=== PATIENT | male | born 1990 | race Native Hawaiian/Other Pacific Islander ===

== ENCOUNTER 2019-01-11 22:01 | Inpatient (IN) ==
[2019-01-11] MEDS ORDERED: MORPHINE IV ONE (23:24)
[2019-01-11] MEDS ORDERED: ZOFRAN IV ONE (23:24)
[2019-01-11] MEDS ORDERED: NS 1,000 ML IV ONE (23:24)
[2019-01-11 23:40] LABS: HEMATOCRIT 47.4 % (42.0-52.0); HEMOGLOBIN 16.3 g/dL (14.0-18.0); IMM GRAN# 0.01 X1000 (0.0-0.04); IMM GRAN% 0.3 % (0.0-0.5); LYMPH# 1.08 X1000 (1.2-3.4); LYMPH% 28.1 % (20.5-51.1); MCH 27.6 PG (27-31); MCHC 34.4 g/dL (33-37); MCV 80.2 FL (81-99); MONO# 0.45 X1000 (0.11-0.59); MONO% 11.7 % (1.7-9.3); MPV 10.7 FL (7.4-10.4); NEUT# 2.31 X1000 (1.4-6.5); NEUT% 59.9 % (42.2-75.2); PLT 162 X1000 (130-400); RBC 5.91 XMIL (4.7-6.1); WBC 3.85 X1000 (4.8-10.8)
[2019-01-11 23:47] LABS: AGAP 17; ALBUMIN 4.3 g/dL (3.5-5.0); ALKALINE PHOSPHATASE 86 U/L (32-122); BUN 7 mg/dL (8-22); CALCIUM 8.1 mg/dL (8.8-10.2); CHLORIDE 95 mmol/L (98-107); COSMO 268; CREATININE 0.6 mg/dL (0.7-1.2); ESTIMATED GFR > 60; GLUCOSE 194 mg/dL (70-104); GOT 128 U/L (10-34); GPT 115 U/L (10-44); LIPASE 41 U/L (13-60); POTASSIUM 3.2 mmol/L (3.5-5.1); SODIUM 132 mmol/L (136-145); TCO2 21 mmol/L (25-35); TOTAL PROTEIN 8.2 g/dL (6.3-8.3)
[2019-01-12] MEDS ORDERED: NS 1,000 ML IV ONE (01:10)
[2019-01-12] MEDS ORDERED: ZOFRAN IV PRN (01:10)
[2019-01-12] MEDS ORDERED: TYLENOL PO PRN ×2 (01:10→19:34)
[2019-01-12] MEDS ORDERED: TORADOL IV PRN ×2 (01:10→19:33)
--- NOTE | 2019-01-12 01:10 | PROVIDER DOCUMENTATION ---
This chart was entered by Alice Dillon Scribe, acting as scribe for Hayden Johnson MD. HPI-Abdominal Pain/GI Problem - General Chief Complaint: N/V/D Stated Complaint: RETURN/RECHECK Time Seen by Provider: 01/11/19 23:08 Source: patient Allergies/Adverse Reactions: Patient Allergies Allergy/AdvReac Type Severity Reaction Status Date / Time No Known Allergies Allergy Verified 01/10/19 12:52 Home Medications: Home Medication List Medication Instructions Recorded Confirmed Last Taken Type Furosemide 1 tab PO BID PRN 01/07/19 01/10/19 Unknown History Potassium Chloride [Klor-Con 10] 1 tab PO PRN PRN 01/07/19 01/10/19 Unknown History Verapamil HCl 1 tab PO QAM 01/07/19 01/10/19 Unknown History Diphenoxylate/Atropine [Lomotil] 1 ea PO 4XDAY PRN PRN #14 tab 01/10/19 Unknown Rx Glimepiride [Amaryl] 4 mg PO DAILY #30 tab 01/10/19 Unknown Rx Ondansetron [Ondansetron Odt] 4 mg PO DIRECTED 01/10/19 01/10/19 Unknown Hist ory - History of Present Illness-ABD Nature of Presenting Problems: 28 y/o male presents to the ED with complaint of epigastric abdominal pain, nausea, vomiting, and diarrhea times four days with addition of hematemesis and dizziness today. The patient states he was seen here Sunday and again yesterday with similar symptoms and diagnosed with diabetes yesterday. He states he has been taking his medication as prescribed without improvement. Abdominal Pain Onset Location: reports: epigastric Onset/Duration: reports: 4 days ago Timing: reports: still present Activities at Onset: reports: light activity Associated Symptoms: reports: dizziness, nausea, vomiting, weakness Rectal Bleeding: reports: none Similar Symptoms Previously?: Yes Recently seen or treated by another doctor?: Yes (here x 2 ) Review of Systems - Adult - REVIEW OF SYSTEMS - ADULT Constitutional: reports: fever. denies: weight gain, weight loss Eyes: reports: no symptoms reported Ears, Nose, Mouth & Throat: reports: no symptoms reported Cardiovascular: reports: no symptoms reported Respiratory: reports: no symptoms reported Gastrointestinal: reports: abdominal pain (epigastric), hematemesis, diarrhea, nausea, vomiting Genitourinary: reports: no symptoms reported Musculoskeletal: reports: no symptoms reported Integumentary: reports: no symptoms reported Neurological: reports: dizziness/vertigo. denies: headache/migraines, syncope, tremors Psychiatric: reports: no symptoms reported Endocrine: reports: no symptoms reported Hematologic/Lymphatic: reports: no symptoms reported Allergic/Immunologic: reports: no symptoms reported All Other Systems: Reviewed and Negative Past History - Adult - PAST MEDICAL HISTORY-ADULT Review of Records: reports: Old Records Reviewed, Nursing Assessment Review, Medications Reviewed Major Childhood Illnesses: reports: denies history Cardiovascular: reports: denies history Respiratory: reports: denies history Gastrointestinal: reports: denies history Obstetrical/Gynecological: reports: denies history Genitourinary: reports: denies history Musculoskeletal: reports: denies history Neurological: reports: denies history Endocrine/Immune: reports: denies history Other Conditions: reports: denies history - PRIOR SURGERIES/PROCEDURES Surgical/Procedure History: reports: reviewed, not pertinent - IMMUNIZATION STATUS Childhood Immunizations: See Nurse Assessment Flu Vaccine: See Nurse Assessment - FAMILY HISTORY Family History: reviewed, not pertinent - SOCIAL HISTORY Smoking: cigarettes Provider spent 3-5 mins advising pt. on dangers of tobacco.: Discussed manners to quit use, and f/u contacts for add'l counseling. Physical Exam-General - PHYSICAL EXAM-ADULT Initial Vital Signs Reviewed: Yes - CONSTITUTIONAL General Appearance: alert, obese - HEAD, EARS, NOSE, MOUTH & THROAT HENMT: normocephalic/atraumatic, moist mucous membranes - NECK Neck: full range of motion, supple - CARDIOVASCULAR Cardiovascular: tachycardia - GASTROINTESTINAL (ABDOMEN) Abdominal Exam: soft. negative: distended - SKIN Integumentary: normal color, warm/dry. negative: diaphoresis - NEUROLOGIC Neurologic: grossly normal Progress - PLAN OF CARE/RESULTS Progress/Plan/Lab Results: Vital Signs - 8 hr 01/11/19 22:47 Temperature 98.7 F Pulse Rate 125 H Respiratory Rate 20 Blood Pressure 119/087 O2 Sat by Pulse Oximetry 97 Laboratory Results - last 24 hr 01/11/19 22:51 POC Glucose 177 H Result Diagrams: 01/11/19 23:05 01/11/19 23:05 - CT/MRI 1 CT Study: Abdomen, Pelvis Impression: See EMR Report (No acute intra-abdominal process identified. Enlarged, fatty infiltated liver. Preliminary report.) - CONSULTS/PCP/HOSPITALIST Notification #1 *Consult/PCP/Hospitalist*: Dr Mueller, Hospitalist Time Discussed: 00:58 Reason/Comments: Abnormal labs. Consult Disposition: Admit Departure - Departure Date of Disposition Decision: 01/12/19 Time of Disposition Decision: 01:10 DIAGNOSIS: Gastroenteritis Disposition: ADMITTED INPATIENT 09 Certified Medical Emergency: Emergent Condition: Stable Referrals and Follow-Ups: Estelle You [Primary Care Provider] - - Critical Care Note This patient required my direct & personal management of CC.: No Attestation - Physician/ ROBBI Attestation Patient care was provided by Advanced Practice Provider:: No The physician spent face to face time with patient:: Yes Advanced Practice Provider documentation review:: Supervising physician onsite and consulted in the evaluation and care of this patient. The physician did have a face to face encounter with the patient. This chart was documented by the indicated scribe, (Alice Dillon, Scribe) and accurately reflects the services I performed and decisions made by me, Hayden Johnson MD, as attested by the provider's signature.
[2019-01-12] MEDS: MORPHINE IV PRN ×2 (02:03→11:27)
[2019-01-12 06:57] LABS: URINE SOURCE CLEAN CATCH
[2019-01-12 07:21] LABS: BILIRUBIN URINE NEGATIVE (NEGATIVE); BLOOD URINE NEGATIVE (NEGATIVE); CLARITY CLEAR (CLEAR); COLOR YELLOW; GLUCOSE URINE NEGATIVE (NEGATIVE); KETONE URINE 3+(Large) mg/dL (NEGATIVE); LEUKOCYTES URINE NEGATIVE (NEGATIVE); NITRITE URINE NEGATIVE (NEGATIVE); PROTEIN URINE 1+(30 mg/dL) mg/dL (NEGATIVE); URINE BACTERIA NEGATIVE /HFP; URINE EPITHELIAL CELLS <10 /HPF (<10); URINE RBC <10 /HPF (<10); URINE WBC <10 /HPF (<10); UROBILINOGEN URINE NORMAL
--- NOTE | 2019-01-12 07:51 | Diag Imaging Result Doc PS360 ---
EXAM: CT ABD/PELVIS W/IV CONT ONLY 01/11/2019 HISTORY: ap, n/v/d TECHNIQUE: This exam was performed using automated exposure control, adjustment of mA or kV according to patient size, and/or use of iterative reconstruction technique. COMMENT: There is splenomegaly the spleen measuring over 18 cm in anterior posterior dimension. There is profound hepatic steatosis. There are no apparent gallstones. The kidneys are without evidence of hydronephrosis or mass. The adrenal glands are not enlarged. The pancreas is unremarkable. There is no evidence of bowel obstruction. There is some fluid in the right colon and small bowel without evidence of dilatation. There is no evidence of significant adenopathy. Pelvis: The appendix is not distended. There is no evidence of free fluid. There is a prominent perirectal node on the right measuring 12 mm in diameter. The urinary bladder is not distended. There is no evidence of acute bony abnormality. IMPRESSION: Hepatic steatosis and splenomegaly. The possibility of mild enterocolitis cannot be excluded. Perirectal adenopathy of uncertain significance. Electronically signed by Shay Ya 01/12/2019 7:49 AM
[2019-01-12] MEDS ORDERED: NS + KCL 40 MEQ 1,000 ML IV SCH (10:15)
[2019-01-12] MEDS ORDERED: NS 1,000 ML IV SCH (10:30)
[2019-01-12 11:56] LABS: BASO# 0.01 X1000 (0.0-0.2); BASO% 0.3 % (0.0-0.8); HEMATOCRIT 43.8 % (42.0-52.0); HEMOGLOBIN 14.8 g/dL (14.0-18.0); IMM GRAN# 0.01 X1000 (0.0-0.04); IMM GRAN% 0.3 % (0.0-0.5); LYMPH# 0.91 X1000 (1.2-3.4); LYMPH% 31.2 % (20.5-51.1); MCH 27.8 PG (27-31); MCHC 33.8 g/dL (33-37); MCV 82.2 FL (81-99); MONO# 0.44 X1000 (0.11-0.59); MONO% 15.1 % (1.7-9.3); MPV 10.5 FL (7.4-10.4); NEUT# 1.55 X1000 (1.4-6.5); NEUT% 53.1 % (42.2-75.2); PLT 129 X1000 (130-400); RBC 5.33 XMIL (4.7-6.1); RDW 12.9 % (11.5-14.5); WBC 2.92 X1000 (4.8-10.8)
[2019-01-12 12:11] LABS: HEMOGLOBIN A1C 9.5 % (4.8-6.0)
[2019-01-12 12:14] LABS: AGAP 15; ALBUMIN 3.5 g/dL (3.5-5.0); ALKALINE PHOSPHATASE 70 U/L (32-122); BUN 5 mg/dL (8-22); CALCIUM 7.6 mg/dL (8.8-10.2); CHLORIDE 99 mmol/L (98-107); COSMO 274; CREATININE 0.7 mg/dL (0.7-1.2); ESTIMATED GFR > 60; GLUCOSE 184 mg/dL (70-104); GOT 89 U/L (10-34); GPT 85 U/L (10-44); MAGNESIUM 1.7 mg/dL (1.5-2.7); POTASSIUM 3.3 mmol/L (3.5-5.1); SODIUM 136 mmol/L (136-145); TCO2 23 mmol/L (25-35); TOTAL PROTEIN 7.1 g/dL (6.3-8.3)
[2019-01-12] MEDS ORDERED: LEVAQUIN 500 MG/D5W 500 MG/100 ML IVPB IV SCH (12:15)
[2019-01-12] MEDS ORDERED: FLAGYL 500 MG/NS 500 MG/100 ML IVPB IV SCH (12:15)
[2019-01-12] MEDS ORDERED: PROTONIX IV SCH (13:45)
[2019-01-12] MEDS ORDERED: SODIUM CHLORIDE 0.9% INJ SCH (13:45)
[2019-01-12] MEDS ORDERED: HUMALOG (PARKWAY) SUBQ SCH (16:00)
[2019-01-12] MEDS ORDERED: SODIUM CHLORIDE 0.9% INJ ONE (16:03)
[2019-01-12] MEDS ORDERED: PROTONIX IV ONE ×2 (16:03→16:30)
[2019-01-12] MEDS ORDERED: PROTONIX 80 MG in NS 80 ML IV SCH (16:15)
--- NOTE | 2019-01-12 17:45 | HISTORY AND PHYSICAL ---
ADDENDUM: Patient seen and examined by myself. Full note dictated and discussed with nurse practitioner. Patient notes that he was in the ER a couple of days ago with abdominal pain, nausea and vomiting. States he feels tired and fatigued. He is obviously volume depleted. We are going to admit him to the hospital, keep him NPO except ice chips and sips. We will place him on Cipro and Flagyl. CT demonstrated possible colitis. Currently, he is stable. Notes that a couple of days ago he had blood in his emesis, but has not had any in the past 24 hours. Should this restart, we will obviously have to transfer him to [facility] for GI involvement. cc: Rey Mueller MD
--- NOTE | 2019-01-12 18:37 | HISTORY AND PHYSICAL ---
CHIEF COMPLAINT: Nausea, vomiting, diarrhea, epigastric pain with hematemesis for 4 days. HPI: This is a 28-year-old morbidly obese gentleman with a history of irregular heartbeats. He presented to the emergency room with the 3rd visit in 6 days complaining of nausea, vomiting, diarrhea. The patient was evaluated on January 07 and was diagnosed with nausea, vomiting, and diarrhea, given prescription for Zofran, told to follow up with primary care physician. He returned on January 10 with no relief in symptoms. At this time he was diagnosed with hyperglycemia due to diabetes type 2, gastroenteritis, given Amaryl and Lomotil and discharged home. He returned on the at 11 o'clock complaining of increasing abdominal pain, nausea, vomiting, diarrhea with hematemesis and dizziness that started in the hours prior to coming to the emergency room. He states he did not start his Amaryl. CT of the abdomen and pelvis with IV contrast revealed hepatic steatosis and splenomegaly with the possibility of mild enterocolitis cannot be excluded. Perirectal adenopathy with a node on the right measuring 12 mm in diameter was noted. He was given a liter of saline, Zofran, morphine and he is being admitted for further evaluation and treatment. PAST MEDICAL HISTORY: Irregular heartbeat. PAST SURGICAL HISTORY: Denies. SOCIAL HISTORY: He denies any alcohol or illicit drug use. He does smoke about a pack a day. ALLERGIES: No known drug allergies. HOME MEDICATIONS: Verapamil 80 mg p.r.n. REVIEW OF SYSTEMS: Discussed with patient with pertinent positives stated in the HPI. He denies any syncope, any chest pain or palpitations, shortness of breath, cough, fever, chills, night sweats, any black or bloody stools, any hematuria, dysuria, frequency, urgency. PHYSICAL EXAMINATION: GENERAL: This is a 28-year-old morbidly obese gentleman who is sitting up in the bed in no distress. VITAL SIGNS: Blood pressure is 114/63 with a heart rate of 100, respirations are 20, temperature is 100.1 degrees oral with room air saturations 96 to 98%. HEENT: Pupils are equal, round, react to light. EOMs are intact sclerae anicteric. Head is normocephalic, atraumatic. Mucous membranes are moist. NECK: Supple with trachea midline. CARDIOVASCULAR: Regular rate and rhythm. S1 and S2 appreciated. He has no lower extremity edema. Peripheral pulses are palpable x4 extremities. PULMONARY: Breath sounds are clear. No increased work of breathing noted. GASTROINTESTINAL: Abdomen soft, nontender, nondistended. Bowel sounds in all 4 quadrants. GENITOURINARY: No CVA or suprapubic tenderness. NEUROLOGIC: He is alert and oriented x3. SKIN: Warm and dry. LABS: WBC is 3.8 with hemoglobin 16.3, hematocrit 47.4, platelets of 162,000. Sodium 132, potassium 3.2, BUN 7, creatinine 0.6, glucose of 194. CT of the abdomen and pelvis reveals hepatic steatosis and splenomegaly with the possibility of mild enterocolitis not excluded. Prominent perirectal node on the right measuring 12 mm in diameter. ASSESSMENT AND PLAN: 1. Nausea, vomiting, diarrhea. 2. Hematemesis. 3. Possible enterocolitis per CT scan. 4. Hyponatremia. 5. Hypokalemia. 6. Hyperglycemia. PLAN: The patient has been admitted to the medical-surgical floor. He will continue with IV hydration giving Flagyl and Levaquin for possible enterocolitis. Will check a hemoglobin A1c, Protonix 40 mg q.12 hours, continue with Zofran, clear liquids and we can advance as tolerated. We will check orthostatic vital signs. Will hold any anticoagulation of course due to the hematemesis, use SCDs for DVT prophylaxis. We will check a stool for occult blood as well as vomitus. The patient will be transferred to [facility] for GI if he has any further hematemesis. Plan was discussed with Dr. Mueller. Further treatments pending hospital course. Dictated by ORACIO Walsh for Rey Mueller MD cc: ORACIO Walsh MD
[2019-01-12] MEDS ORDERED: MORPHINE IV PRN (19:32)
[2019-01-12] MEDS: HUMALOG SUBQ SCH (20:25)
[2019-01-12 21:23] LABS: BASO# 0.01 X1000 (0.0-0.2); BASO% 0.4 % (0.0-0.8); HEMATOCRIT 43.6 % (42.0-52.0); HEMOGLOBIN 15.2 g/dL (14.0-18.0); LYMPH# 0.76 X1000 (1.2-3.4); LYMPH% 28.1 % (20.5-51.1); MCH 28.1 PG (27-31); MCHC 34.9 g/dL (33-37); MCV 80.7 FL (81-99); MONO# 0.34 X1000 (0.11-0.59); MONO% 12.6 % (1.7-9.3); MPV 10.3 FL (7.4-10.4); NEUT# 1.59 X1000 (1.4-6.5); NEUT% 58.9 % (42.2-75.2); PLT 119 X1000 (130-400)
[2019-01-12] MEDS: FLAGYL 500 MG/NS 500 MG/100 ML IVPB IV SCH (22:03)
[2019-01-12] MEDS: ZOFRAN IV PRN (23:17)
[2019-01-12] MEDS: NS + KCL 40 MEQ 1,000 ML IV SCH (23:43)
[2019-01-13] MEDS: PROTONIX 80 MG in NS 80 ML IV SCH ×2 (00:58→02:35)
[2019-01-13] MEDS: FLAGYL 500 MG/NS 500 MG/100 ML IVPB IV SCH ×4 (03:11→21:29)
[2019-01-13 03:59] LABS: HEMATOCRIT 40.1 % (42.0-52.0); MCH 28.2 PG (27-31); MCHC 34.9 g/dL (33-37); MCV 80.8 FL (81-99); MPV 10.8 FL (7.4-10.4); RBC 4.96 XMIL (4.7-6.1); WBC 2.32 X1000 (4.8-10.8)
[2019-01-13 04:15] LABS: AGAP 16; ALBUMIN 3.3 g/dL (3.5-5.0); BUN 4 mg/dL (8-22); CALCIUM 7.7 mg/dL (8.8-10.2); CHLORIDE 101 mmol/L (98-107); COSMO 275; CREATININE 0.6 mg/dL (0.7-1.2); ESTIMATED GFR > 60; GLUCOSE 171 mg/dL (70-104); PHOSPHORUS 2.5 mg/dL (2.7-4.5); POTASSIUM 3.7 mmol/L (3.5-5.1); SODIUM 137 mmol/L (136-145); TCO2 20 mmol/L (25-35)
[2019-01-13] MEDS: NS + KCL 40 MEQ 1,000 ML IV SCH ×2 (05:41→06:07)
[2019-01-13] MEDS: HUMALOG SUBQ SCH ×4 (06:07→20:12)
[2019-01-13] MEDS ORDERED: NEO-SYNEPHRINE 50 MG in NS 250 ML IV SCH (09:00)
[2019-01-13] MEDS ORDERED: XYLOCAINE-MPF 2% ONE (09:37)
[2019-01-13] MEDS ORDERED: DIPRIVAN 1% ONE (09:37)
--- NOTE | 2019-01-13 09:53 | ENDOSCOPY OPERATIVE NOTE ---
[facility] ENDOSCOPY OPERATIVE NOTE , PATIENT: Jody Cabezas ADMISSION DATE: 01/13/2019 MR#: [id number] : 1990 EGD PROCEDURE REPORT PROCEDURE DATE: 01/13/2019 SURGEON: Jose Huang MD STATUS: inpatient COMPUTER SYSTEMS INTEGRATOR: Concetta Lantigua and Gideon Carvalho PREOPERATIVE DIAGNOSIS: The patient is a 28 yr old male here for an EGD due to diagnostic procedure. PROCEDURE PERFORMED: EGD, diagnostic MEDICATIONS: Per Anesthesia TOPICAL ANESTHETIC: none CONSENT: The patient understands the risks and benefits of the procedure and understands that these r isks include, but are not limited to: sedation, allergic reaction, infection, perforation and/or bleeding. Alternative means of evaluation and treatment include, among others: physical exam, x-rays, and/or surgical intervention. The patient elects to proceed with this endoscopic procedure. HISORY AND PHYSICAL: 01/13/2019 DESCRIPTION OF PROCEDURE: During intra-op preparation period all mechanical and medical equipment was checked for proper function. Hand hygiene and appropriate measures for infection prevention was taken. After the risks, benefits and alternatives of the procedure were thoroughly explained, Informed consent was verified, confirmed and timeout was successfully executed by the treatment team. The patient was anesthetized with topical anesthesia and the UR38-i24 ([id number]) endoscope was introduced through the mouth and advanced to the second portion of the duoden um. Retroflexion was performed in the stomach and revealed no abnormalities. The gastroscope was then slowly withdraw n and removed. ESOPHAGUS: Blood in the oropharynx. Polyp in the larynx/vocal cord. The mucosa of the esophagus appeared normal. STOMACH: The mucosa of the stomach appeared normal. DUODENUM: The duodenal mucosa showed no abnormalities. SPECIMENS REMOVED: No ADVERSE EVENTS: There were no complications. POSTOPERATIVE DIAGNOSIS: 1. Blood in the oropharynx. Polyp in the larynx/vocal cord 2. The mucosa of the esophagus appeared normal 3. The mucosa of the stomach appeared normal 4. The duodenal mucosa showed no abnormalities RECOMMENDATIONS: 1. Resume current medications 2. Start Full liquid diet for 1 Day(s) 3. Please consullt ENT 4. Return to floor when standard parameters are met REPEAT EXAM: Jose Huang MD eSigned: Jose Huang MD 01/13/2019 9:52 AM cc: Patti Gonzalez MD PATIENT NAME: Jody Cabezas MR#: [id number]
--- NOTE | 2019-01-13 11:04 | PROGRESS NOTE ---
DATE: 01/13/2019 SUBJECTIVE: Patient has no major complaints. OBJECTIVE: Blood pressure 130/78, heart rate 100, respiratory rate 26, and temperature was 99 degrees.Cardiovascular: Regular rate and rhythm. Pulmonary: Bilateral breath sounds. Clear to auscultation. GI: Soft, nontender, and nondistended. Bowel sounds were positive. Extremities: No clubbing or cyanosis. Lymphatic: No peripheral edema. Neurological: Nonfocal. LABORATORY DATA: White count is 2. Hemoglobin and hematocrit 14 and 40, platelets of 107,000. Basic was normal. Phosphorus was 2.5. PROBLEM LIST: 1. Rule out GI bleed. It looks like he may have an oropharyngeal bleed possibly from a polyp although there was no commentary that it was actively bleeding, but we will get an ENT consult and scan his head and neck for other source. 2. Enterocolitis, which I think is most likely viral, but he does have low-grade temperatures and, he is still fairly symptomatic so we are going to continue doing treatment which includes antibiotics for the time being. We will try to get stool studies, and see if there is anything going on there. 3. Pancytopenia which would also argue that this is possibly viral. We are going to get B12, folate levels, and follow closely. 4. Diabetes which is new onset. We will continue to monitor his blood sugars. I am going to start glipizide. His daily blood sugars have been on the low side, but that is probably because of poor p.o. intake. We will continue to follow. I am going to start glipizide with a goal of starting metformin. Just waiting until his diarrhea gets a little bit better in case that exacerbates it. DISPOSITION: I think he is stable for step-down. We will continue to follow. cc: Brodie Guadarrama MD
[2019-01-13] MEDS: NS 1,000 ML IV SCH ×2 (11:17→17:33)
[2019-01-13] MEDS ORDERED: LEVAQUIN 500 MG/D5W 500 MG/100 ML IVPB IV SCH (12:00)
--- NOTE | 2019-01-13 12:22 | Diag Imaging Result Doc PS360 ---
CT HEAD WWO NECK W/CONTRAST - 01/13/2019 INDICATION: possible oropharyngeal bleed COMPARISON: None FINDINGS: The head is normal. There is severe enlargement of the left palatine tonsils, as well as the left lingual tonsil. The left palatine tonsils measure 3.9 x 2.7 cm axially. The left lingual tonsil measures 3.8 x 2 cm. No abscess or fluid collections. The larynx appears normal. The thyroid is normal. There are some enlarged left level two cervical lymph nodes. The largest measures about 1.7 x 1.6 cm. The major salivary glands are normal. Bony structures are intact. There is a mucosal retention cyst in the left maxillary sinus. Otherwise the sinuses are clear. IMPRESSION: 1. Severe tonsillitis of the left palatine and lingual tonsils. 2. Reactive left cervical lymphadenopathy. This exam was performed using automated exposure control, adjustment of mA or kV according to patient size, and/or use of iterative reconstruction technique Electronically signed by Nadeem Arredondo 01/13/2019 12:20 PM
[2019-01-13] MEDS: ZOFRAN IV PRN ×2 (14:50→20:22)
[2019-01-13] MEDS ORDERED: G.I. COCKTAIL PO ONE (15:23)
--- NOTE | 2019-01-13 16:02 | PROGRESS NOTE ---
DATE: 01/13/2019 ADDENDUM: He is kind of spitting up kind of dark blood with clot. He is not coughing it up. It is not from his GI tract because his EGD was completely normal, but it does look like he has got pretty significant tonsillitis, although I cannot see any visible blood, but he kind has bloody secretions from that. I do not know if that is from protracted nausea and vomiting because he has had this diarrhea. He has had exposure to [facility] recently with a recent epidemic Anoro virus but that would not explain his pharyngitis and tonsillitis. It is possible this is mononucleosis. He is kind of the right age for it. He has tonsillitis. He has leukopenia, pancytopenia. He has splenomegaly on his CT. Diarrhea is not common, but it is not exclusive, so we will test him for that. I have expanded his antibiotics to better cover pharyngitis and tonsillitis, but I do not think this is a bacterial infection at this point, so we will continue to monitor closely. We will get ENT evaluation. cc: Brodie Guadarrama MD
[2019-01-13] MEDS ORDERED: PROTONIX IV SCH ×2 (17:00→21:00)
[2019-01-13] MEDS: MAXIPIME 2 GM in NS 100 ML IV SCH (17:27)
--- NOTE | 2019-01-13 19:55 | CONSULTATION ---
DATE OF CONSULTATION: 01/13/2019 REASON FOR CONSULTATION: I was asked to see this patient regarding a true vocal cord polyp noted on EGD. HISTORY OF PRESENT ILLNESS: The patient is 28 years old admitted with nausea, vomiting, diarrhea, and hematemesis. As part of his workup, he underwent EGD which was unremarkable except for left true vocal cord polyp. Mr. Cabezas states that he still is spitting up and vomiting dark blood. He denies hemoptysis. He denies bright red bleeding. Denies epistaxis. It has been present for several days. CT scan of the head and neck was significant for enlarged tonsils with some left cervical lymphadenopathy. He states his throat has been sore. He has been on antibiotics since admission. He reports a longstanding history of hoarseness. No dysphagia. PAST MEDICAL HISTORY: Reviewed. SOCIAL AND FAMILY HISTORY: Reviewed. REVIEW OF SYSTEMS: As noted. PHYSICAL EXAMINATION: Nose, mouth septal deflection the left. No evidence of epistaxis. No old blood thick in vestibule bilaterally. Oral cavity, pharynx tonsils 3 to 4+ bilaterally. Excoriation of tonsils with possibly some mild ulcerative change. No blood noted in the oropharynx or on tonsils. Flexible fiberoptic exam of nasopharynx, hypopharynx and larynx reveals clear nasopharynx. Hypopharynx unremarkable. He has an exophytic lesion, left true vocal cord appears to be a papilloma or polyp. It is not erythematous and does not appear suspicious for source of bleeding, but is abnormal, at the junction of middle and anterior 3rd. Airway intact. Neck ,obese. Probable left cervical adenopathy. IMPRESSION: History of hematemesis, left true vocal cord lesion. No epistaxis or hemoptysis. DISCUSSION: If true vocal cord lesion was a source of bleeding, I would have expected some degree of hemoptysis, not dark blood with his hematemesis. I guess he could potentially be swallowing this blood, but again certainly at this point of the airway, would expect hemoptysis. Tonsils are inflamed and large but I have not seen bleeding to this degree from the tonsils before. If the bleeding persists, I can certainly take the patient to the operating room to remove this vocal cord lesion with closer examination of oropharynx and hypopharynx. He is a significant anesthesia risk with 4+ tonsils, morbid obesity, and probable sleep apnea so obviously would prefer to treat this conservatively particularly in light of absence of hemoptysis. However, we will follow and available if needed. cc: Kyle Vernon MD
[2019-01-14] MEDS: MAXIPIME 2 GM in NS 100 ML IV SCH ×2 (03:20→16:42)
[2019-01-14] MEDS: NS 1,000 ML IV SCH ×3 (03:21→21:10)
[2019-01-14] MEDS: FLAGYL 500 MG/NS 500 MG/100 ML IVPB IV SCH ×4 (04:40→21:11)
[2019-01-14 05:57] LABS: BASO# 0.02 X1000 (0.0-0.2); BASO% 0.9 % (0.0-0.8); EOS# 0.03 X1000 (0.0-0.7); EOS% 1.3 % (0.0-10.0); HEMATOCRIT 41.1 % (42.0-52.0); HEMOGLOBIN 14.2 g/dL (14.0-18.0); LYMPH# 0.89 X1000 (1.2-3.4); LYMPH% 38.4 % (20.5-51.1); MCH 28.3 PG (27-31); MCHC 34.5 g/dL (33-37); MONO# 0.33 X1000 (0.11-0.59); MONO% 14.2 % (1.7-9.3); MPV 11.3 FL (7.4-10.4); NEUT# 1.05 X1000 (1.4-6.5); NEUT% 45.2 % (42.2-75.2); PLT 101 X1000 (130-400); RBC 5.01 XMIL (4.7-6.1); RDW 13.3 % (11.5-14.5); WBC 2.32 X1000 (4.8-10.8)
[2019-01-14 06:29] LABS: AGAP 13; BUN 4 mg/dL (8-22); CALCIUM 8.4 mg/dL (8.8-10.2); CHLORIDE 102 mmol/L (98-107); COSMO 269; CREATININE 0.6 mg/dL (0.7-1.2); ESTIMATED GFR > 60; GLUCOSE 138 mg/dL (70-104); SODIUM 135 mmol/L (136-145); TCO2 20 mmol/L (25-35)
[2019-01-14] MEDS: HUMALOG SUBQ SCH ×4 (06:29→21:10)
[2019-01-14] MEDS: PRILOSEC PO SCH (06:29)
[2019-01-14] MEDS: GLUCOTROL PO SCH (10:14)
[2019-01-14] MEDS: ZOFRAN IV PRN (10:14)
[2019-01-14] MEDS: POTASSIUM CHLORIDE 20 MEQ/SWI 20 MEQ/100 ML IVPB IV SCH ×2 (12:20→16:22)
--- NOTE | 2019-01-14 12:22 | PROGRESS NOTE ---
DATE: 01/14/2019 SUBJECTIVE: No bleeding today. No bleeding since early last evening. Again, denied a history of hemoptysis. PHYSICAL EXAMINATION: On flexible fiberoptic exam, has a 3 mm erythematous lesion, junction of anterior and middle third left true cord. Medial subglottis clear, supraglottis clear. 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 With no history of hemoptysis, could not be sure this is the source of bleeding but other evaluation, workup has been unremarkable. I have discussed with the patient and family, microlaryngoscopy with excision of lesion. They understand, voice could worsen, he could need further surgery. Understand bleeding risk. We have discussed intubation difficulties, probable sleep apnea, also history of smoking. The understand and agree to proceed. cc: Kyle Vernon MD
[2019-01-14] MEDS ORDERED: G.I. COCKTAIL PO PRN (12:37)
--- NOTE | 2019-01-14 12:59 | PROGRESS NOTE ---
DATE: 01/14/2019 SUBJECTIVE: The patient has no major complaints. He says the hematemesis is gone. Diarrhea persists. OBJECTIVE: Blood pressure 114/65, heart rate of 92, respiratory rate of 22.Cardiovascular: Regular rate and rhythm. Pulmonary: Bilateral breath sounds clear to auscultation. GI: Soft, nontender, nondistended. Bowel sounds are positive. White count is 2, hemoglobin and hematocrit 14 and 41, which is actually unchanged. Platelets of 101,000. Potassium is 3. B12 normal, folate normal. PROBLEM LIST: 1. Upper airway possible bleed. It does not look like a GI bleed in the sense of upper GI bleed. Endoscopy was negative. He does have a polyp which is irritated and I appreciate Dr. Vernon's intervention and he is going to go to the OR for evaluation and possible resection. 2. Enterocolitis, which may be viral. All the stool studies thus far are negative so I am not entirely sure this is a true infection as far as a bacterial infection. Clostridium difficile is negative, but the heme test is positive. If he is not much improved, we may have to consider colonoscopy but that will be up to him. 3. Pancytopenia. It is not really clear what is causing that unless it is a viral process. 4. Hypokalemia. We will supplement. 5. Diabetes. We will continue to follow. His blood sugars have been pretty well controlled. His A1c is 9.5. Continue to monitor. I did order a CT of his chest just to evaluate for any other pathology, but I think we will do the testing. We will continue to follow closely. cc: Brodie Guadarrama MD
--- NOTE | 2019-01-14 13:57 | GASTROENTEROLOGY PROGRESS NOTE ---
DATE: 01/14/2019 SUBJECTIVE: The patient was awake and alert. His parents were at the bedside. The patient reports only a small amount of bleeding, spitting up some darker blood. He had an EGD on 01/13/2019. Findings showed blood in the oropharynx with a polyp or lesion noted at the larynx/vocal core otherwise esophagus and stomach along with duodenum were normal. Patient has been seen by Dr. Vernon with ENT. OBJECTIVE: Vital Signs: Temperature 98.4 degrees, pulse 92, respirations 22, blood pressure 114/65. General: Patient is awake and alert. LABORATORY: Hematology, WBC 2.32, hemoglobin 14.2, hematocrit 41.1, MCV 82.0, platelet 101,000. Chemistry. Sodium 135, potassium 3.0, chloride 102, CO2 20, BUN 4, creatinine 0.6, glucose 138. Patient has been seen by Dr. Vernon today. He did a flexible fiberoptic exam at the bedside with a 3 mm erythematous lesion at the junction of the anterior middle 3rd left true cord noted with medial subglottis clear and supraglottis clear. Plans for micro laryngoscopy with excision of lesion possibly today. There were no GI findings to explain his bleeding, esophagus and stomach along with duodenum were normal. GI will be available as needed. Please reconsult if needed. I have discussed this case with Dr. Huang. Dictated by ORACIO Domínguez for Jose Huang MD cc: ORACIO Bray MD [facility]
[2019-01-14 14:29] LABS: AGAP 15; ALB/GLOB RATIO 0.9; ALBUMIN 3.2 g/dL (3.5-5.0); ALKALINE PHOSPHATASE 57 U/L (32-122); BUN 4 mg/dL (8-22); CALCIUM 8.4 mg/dL (8.8-10.2); CHLORIDE 103 mmol/L (98-107); COSMO 274; CREATININE 0.5 mg/dL (0.7-1.2); ESTIMATED GFR > 60; GLUCOSE 99 mg/dL (70-104); GOT 84 U/L (10-34); GPT 69 U/L (10-44); POTASSIUM 3.6 mmol/L (3.5-5.1); SODIUM 139 mmol/L (136-145); TCO2 21 mmol/L (25-35); TOTAL BILIRUBIN 0.43 mg/dL (0.20-1.00); TOTAL PROTEIN 6.9 g/dL (6.3-8.3)
[2019-01-14] MEDS ORDERED: DIPRIVAN 1% ONE ×2 (16:01→16:56)
[2019-01-14] MEDS ORDERED: AFRIN NASAL SPRAY ONE (16:16)
[2019-01-14] MEDS ORDERED: XYLOCAINE 1%/EPI 1:100,000 ONE (16:17)
[2019-01-14] MEDS ORDERED: VERSED ONE (16:45)
[2019-01-14] MEDS ORDERED: FENTANYL ONE (16:55)
[2019-01-14] MEDS ORDERED: DECADRON ONE (17:02)
[2019-01-14] MEDS ORDERED: XYLOCAINE-MPF 2% ONE (17:02)
[2019-01-14] MEDS ORDERED: ZEMURON ONE (17:02)
[2019-01-14] MEDS ORDERED: QUELICIN (DOSE) ONE (17:02)
[2019-01-14] MEDS ORDERED: ZOFRAN ONE (17:02)
[2019-01-14] MEDS ORDERED: BRIDION ONE (17:05)
--- NOTE | 2019-01-14 20:01 | OPERATIVE NOTE ---
PROCEDURE DATE: 01/14/2019 PREOPERATIVE DIAGNOSIS: Lesion of left true vocal cord. POSTOPERATIVE DIAGNOSIS: Lesion of left true vocal cord. PROCEDURE: Microlaryngoscopy with excision of lesion of left true vocal cord. ANESTHESIA: General. SURGEON: Kyle Vernon MD. CONSENT: Risks, benefits, and alternatives to surgery were discussed with patient and family prior to signing the OP permit. OPERATION: Patient was taken to the operating room, placed in supine position. General orotracheal anesthesia was induced without difficulty. A tooth protector inserted and a single- lumen laryngoscope introduced. The oropharynx was unremarkable, other than 4+ tonsils with mild erythema. Lingual tonsils were prominent and present. No lesions noted. The supraglottis, epiglottis were all normal. The glottis was visualized and laryngoscope suspended. The microscope brought into position. The immediate subglottis appeared clear. Left cord had an exophytic, papillomatous-appearing lesion on the anterior third, almost junction of anterior and middle third. The right cord was clean. Sharp, angled scissors were used to make nip in mucosa just anterior and posterior to this lesion, and then with forceps grasping the lesion, we were able to carefully dissect it from the underlying tissue, preserving a predominant amount of mucosa over the cord. There was some bleeding from the base, which was completely controlled with cottonoids with Lester-Synephrine on these. The excision site was completely dry at the end of procedure. The glottis, hypopharynx, and oropharynx were completely suctioned clear. At the end of the procedures, the laryngoscope was withdrawn, and the patient awakened, sent to the recovery room in good condition. cc: Kyle Vernon MD
[2019-01-15] MEDS: NS 1,000 ML IV SCH ×5 (00:46→23:11)
[2019-01-15] MEDS: MAXIPIME 2 GM in NS 100 ML IV SCH ×2 (02:54→03:31)
[2019-01-15] MEDS: FLAGYL 500 MG/NS 500 MG/100 ML IVPB IV SCH ×3 (02:54→09:10)
[2019-01-15] MEDS: PRILOSEC PO SCH ×2 (05:37→06:19)
[2019-01-15] MEDS: HUMALOG SUBQ SCH ×6 (05:37→20:36)
[2019-01-15 06:20] LABS: BASO# 0.03 X1000 (0.0-0.2); BASO% 1.5 % (0.0-0.8); HEMATOCRIT 40.5 % (42.0-52.0); HEMOGLOBIN 14.2 g/dL (14.0-18.0); LYMPH# 0.59 X1000 (1.2-3.4); LYMPH% 30.4 % (20.5-51.1); MCH 28.4 PG (27-31); MCHC 35.1 g/dL (33-37); MONO# 0.25 X1000 (0.11-0.59); MONO% 12.9 % (1.7-9.3); MPV 11.1 FL (7.4-10.4); NEUT# 1.07 X1000 (1.4-6.5); NEUT% 55.2 % (42.2-75.2); PLT 133 X1000 (130-400); WBC 1.94 X1000 (4.8-10.8)
[2019-01-15] MEDS: GLUCOTROL PO SCH (09:10)
--- NOTE | 2019-01-15 09:15 | Diag Imaging Result Doc PS360 ---
CT THORAX W/CONTRAST - 01/15/2019 INDICATION: pneumonia COMPARISON: No prior chest x-rays since 2017 FINDINGS: There is some trace linear atelectasis in the right lower lobe. The lungs are clear of infiltrate. Heart size is normal. No pneumothorax or pleural effusion. IMPRESSION: Negative exam. This exam was performed using automated exposure control, adjustment of mA or kV according to patient size, and/or use of iterative reconstruction technique Electronically signed by Nadeem Arredondo 01/15/2019 9:13 AM
[2019-01-15] MEDS ORDERED: VANCOMYCIN IV PER PHARMACY MISC SCH (11:15)
[2019-01-15] MEDS: VANCOMYCIN 2,000 MG in NS 500 ML IV SCH ×2 (12:56→23:11)
--- NOTE | 2019-01-15 14:09 | PROGRESS NOTE ---
DATE: 01/15/2019 Postoperative day 1 following microlaryngoscopy with excision of papillomatous- appearing lesion left true vocal cord. The patient has had some difficulty maintaining voice rest. gram positive cocci of pharynx. He has had no further bleeding. No complaint of voice or throat discomfort. IMPRESSION: Satisfactory postoperative course. RECOMMENDATION: Continue voice rest. Will need followup next week in my office. Will follow while in the hospital. cc: Kyle Vernon MD [email or web address]
[2019-01-15 18:15] LABS: AGAP 15; ALBUMIN 3.7 g/dL (3.5-5.0); ALKALINE PHOSPHATASE 59 U/L (32-122); BUN 5 mg/dL (8-22); CALCIUM 8.6 mg/dL (8.8-10.2); CHLORIDE 105 mmol/L (98-107); COSMO 277; CREATININE 0.5 mg/dL (0.7-1.2); ESTIMATED GFR > 60; GLUCOSE 175 mg/dL (70-104); GOT 66 U/L (10-34); GPT 77 U/L (10-44); POTASSIUM 3.2 mmol/L (3.5-5.1); SODIUM 138 mmol/L (136-145); TCO2 18 mmol/L (25-35); TOTAL BILIRUBIN 0.55 mg/dL (0.20-1.00); TOTAL PROTEIN 7.5 g/dL (6.3-8.3)
[2019-01-16] MEDS: PRILOSEC PO SCH (06:03)
[2019-01-16] MEDS: HUMALOG SUBQ SCH ×3 (06:04→12:12)
[2019-01-16] MEDS: NS 1,000 ML IV SCH ×2 (06:14→09:35)
[2019-01-16 06:34] LABS: BASO# 0.03 X1000 (0.0-0.2); BASO% 0.9 % (0.0-0.8); EOS# 0.02 X1000 (0.0-0.7); EOS% 0.6 % (0.0-10.0); HEMATOCRIT 39.7 % (42.0-52.0); LYMPH# 1.27 X1000 (1.2-3.4); LYMPH% 39.9 % (20.5-51.1); MCH 28.6 PG (27-31); MCHC 35.3 g/dL (33-37); MCV 81.2 FL (81-99); MONO# 0.33 X1000 (0.11-0.59); MONO% 10.4 % (1.7-9.3); MPV 11.8 FL (7.4-10.4); NEUT# 1.53 X1000 (1.4-6.5); NEUT% 48.2 % (42.2-75.2); PLT 144 X1000 (130-400); RBC 4.89 XMIL (4.7-6.1); WBC 3.18 X1000 (4.8-10.8)
[2019-01-16] MEDS: GLUCOTROL PO SCH (09:34)
[2019-01-16 11:38] VITALS: BP 129/79
[2019-01-16 19:10] LABS: HIV ANTIBODY SCREEN SEE COMMENTS
[2019-01-17 11:44] LABS: HEPATITIS PROFILE ACUTE SEE COMMENTS
--- NOTE | 2019-03-02 18:38 | DISCHARGE SUMMARY ---
ADMISSION DATE: 01/12/2019 DISCHARGE DATE: 01/16/2019 DISCHARGE DIAGNOSES: 1. Methicillin-resistant Staphylococcus aureus pharyngitis. 2. Methicillin-resistant Staphylococcus aureus colitis. 3. Laryngeal polyp. 4. Sleep apnea. 5. Leukopenia. CONSULTATIONS: Dr. Vernon. PROCEDURES: Laryngoscopy with laryngeal biopsy. HISTORY AND HOSPITAL COURSE: Briefly, this is a 28-year-old male who came in initially for nausea, vomiting, diarrhea. He was found to have colitis and he was sent to [facility] for evaluation. CT scan initially showed splenomegaly. Dr. Huang evaluated him and EGD was unremarkable, because he did have some hematochezia. Head and neck CT though showed a small laryngeal mass which was noted on CT. He also had severe tonsillitis and he had persistent diarrhea. Dr. Vernon evaluated the patient and again he went for laryngoscopy and a true vocal cord was resected. However, his cultures ended up growing out Staphylococcus aureus MRSA from a throat culture and a stool culture was pure MRSA. He was started on antibiotics and clinically improved and was able to be discharged home on the . Diarrhea and pharyngitis was stable. Chest CT was negative. DISCHARGE MEDICATIONS: Are as follows. Verapamil 80, Lasix 20 b.i.d., Klor-Con 10 daily, glucose lancets, glipizide, Edwards, and Zofran. He was also, I believe, discharged on antibiotics. DISCHARGE CONDITION: Stable. FOLLOW UP: Told to follow up with PCP, Dr. Huang, Dr. Vernon, and Dr. Estelle You. His HIV test which took a while to get back is negative. TIME SPENT: 32 minute discharge. cc: Brodie Guadarrama MD
== END 2019-01-16 12:40 | disposition home or self-care (01) | DRG 133 ==
LOC: P.MEDSURG 22:01 → P.ED 22:01 → SUATTDRO 01-12 02:22 → OBSVTOIN 01-12 02:22 → ICU 01-12 19:30 → 2N 01-13 15:43
PROVIDERS: ATTEND Internal Medicine